=== PATIENT | female | born 1945 | race Caucasian/White ===

== ENCOUNTER 2022-10-24 22:12 | Emergency (ER) | payer MEDICARE, OTHER ==
[~2022-10-24] VITALS: Ht 172.7 cm; Wt 47.6 kg
[2022-10-24 22:33] LABS: BASOPHILS 0.6 % (0-2); EOSINOPHILS 1.1 % (0-6); HEMATOCRIT 32.9 % (35.0-50.0); HEMOGLOBIN 10.9 g/dL (12.0-18.0); LYMPHOCYTES 39.9 % (24-44); MCHC 33.2 g/dl (30-36); MCV 90.4 fl (81-99); MONOCYTES 10.5 % (0-12); NEUTROPHILS 47.9 % (39-80); PLATELET COUNT 107 K/uL (140-440); RBC 3.65 M/ul (4.3-5.7); RDW 14.2 (10.5-15.0)
[2022-10-24 22:46] LABS: PARTIAL THROMBOPLASTIN TIME 27.8 Sec (22.9-41.3)
[2022-10-24 22:57] LABS: ALBUMIN 2.4 g/dL (3.4-5.0); ALBUMIN/GLOBULIN RATIO 0.57 (1.1-2.4); ANION GAP 11.9 (7-21); BILIRUBIN, TOTAL 0.3 ng/dL (0.2-1.0); BUN/CREATININE RATIO 9.89 (6.0-28.6); CALCIUM 8.1 mg/dL (8.5-10.1); CREATININE, SERUM 0.91 mg/dL (0.55-1.02); MAGNESIUM 1.4 mg/dL (1.8-2.4); POTASSIUM 3.9 mmol/L (3.5-5.1); PROTEIN, TOTAL 6.6 g/dL (6.4-8.2)
[2022-10-24 22:58] LABS: INR 1.12 (0.80-1.30); PROTIME 13.9 Sec (11.2-14.2)
--- OUTSIDE RECORDS SUMMARY | 2022-10-24 23:04 | XMS ---
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 ED/UCC VISIT TRACKING (12 MO.) 10/24/2022 22:12 [facility] [place] TYPE: Emergency COMPLAINT: - CHEST PAIN 10/21/2022 21:36 [facility] COMPLAINT: - Emesis DIAGNOSES: - Emesis 05/15/2022 16:28 [facility] [place] TYPE: Emergency DIAGNOSES: - Chronic multifocal osteomyelitis, left hand - COVID-19 - infection 01/09/2022 13:25 [facility] [place] TYPE: Emergency DIAGNOSES: - Hypoglycemia, unspecified - Slurred speech - AMS 12/25/2021 17:28 [facility] [place] TYPE: Emergency DIAGNOSES: - Gangrene, not elsewhere classified - Osteomyelitis, unspecified - Sepsis, unspecified organism - Severe sepsis without septic shock - SENT BY INPATIENT VISIT TRACKING (12 MO.) 05/15/2022 16:28 [facility] [place] TYPE: Medical Surgical DIAGNOSES: - Chronic multifocal osteomyelitis, left hand - COVID-19 2021 [facility] [facility] DIAGNOSES: - Abnormal electrocardiogram [ECG] [EKG] - Cellulitis, unspecified - Disorientation, unspecified - Osteomyelitis, unspecified - Unspecified foreign body in respiratory tract, part unspecified causing other injury, initial encounter - [facility] - Hand Injury - Osteomyelitis, necrosis of left index finger, sepsis [email or web address]
[2022-10-25] MEDS ORDERED: LASIX20 MG PO ×2 (00:03→00:15)
[2022-10-25 00:30] VITALS: BP 139/83
--- NOTE | 2022-10-25 20:04 | EKG ---
[facility] [address] [facility] [place], [place] [address] Signed Sinus tachycardia with occasional premature ventricular complexes Left axis deviation T wave abnormality, consider anterolateral ischemia Abnormal ECG No previous ECGs available Confirmed by MELQUIADES CARDOSO MD ([id number]) on 10/25/2022 8:03:56 PM Electronically Signed By: MELQUIADES CARDOSO 10/25/22 2004 PATIENT NAME: OLY BARAHONA Electrocardiogram DATE OF : 49 PHYSICIAN: MELQUIADES CARDOSO REPORT #: [id number] REPORT IS CONFIDENTIAL AND NOT TO BE RELEASED WITHOUT AUTHORIZATION
== END 2022-10-25 00:30 | disposition home or self-care (01) ==
LOC: ED 22:12
PROVIDERS: Family Medicine
DX: I50.9 Heart failure, unspecified (principal); Z88.2 Allergy status to sulfonamides; Z88.1 Allergy status to other antibiotic agents; Z88.8 Allergy status to other drugs, medicaments and biological substances; Z91.09 Other allergy status, other than to drugs and biological substances
CPT/HCPCS: 36415; 71045; 80053; 83735; 83880; 84484; 85025; 85379; 85610; 85730; 93005; 93010; 96374; 99285-25; J3475